=== PATIENT | male | born 1945 | race Caucasian/White ===

== ENCOUNTER 2018-07-28 15:06 | Observation (INO) | payer MEDICARE, SELFPAY ==
[2018-07-28 15:33] LABS: Absolute Lymphocytes (CBC) 1.6 K/uL (0.7-4.9); Absolute Monocytes 1.2 K/uL (0.1-1.3); Absolute Neutrophil 6.1 K/uL (1.8-8.0); Basophils % 0.8 % (0-1.3); Eosinophils % 1.1 % (0-4.4); Hematocrit 42.5 % (39.6-49.0); Lymphocytes % 18.1 % (15.3-44.8); MCH 28.1 pg (27.0-35.0); MCV 86.1 fL (80-100); MPV 8.2 fL (7.6-11.3); Monocytes % 13.4 % (3.3-12.3); RBC Red Blood Cell Count 4.94 M/uL (4.33-5.43)
[2018-07-28 15:37] LABS: Protime INR 1.1
[2018-07-28 15:44] LABS: Arterial Blood Carboxyhemoglob 0.5 % (0-1.5); Blood Gas Oxyhemoglobin 94.8 % (94-97)
[2018-07-28] MEDS ORDERED: ALBUTEROL 2.5 MG/3 ML NEB SOL ONE (15:46)
[2018-07-28] MEDS ORDERED: ASPIRIN 81 MG CHEWABLE TABLET ONE (15:46)
[2018-07-28] MEDS ORDERED: IPRATROPIUM BROM 0.5MG/2.5ML ONE (15:46)
[2018-07-28] MEDS ORDERED: NITROGLYCERIN 0.4 MG/TAB SL ONE (15:47)
[2018-07-28] MEDS ORDERED: KETOROLAC 30 MG/ML INJ ONE (15:47)
[2018-07-28 16:00] LABS: ALT/SGPT 18 U/L (12-78); AST/SGOT 7 U/L (15-37); Albumin 3.8 g/dL (3.4-5.0); Alkaline Phosphatase 90 U/L (45-117); BUN Blood Urea Nitrogen 36 mg/dL (7-18); Bicarbonate 21 mmol/L (21-32); Bilirubin Direct 0.1 mg/dL (0-0.2); Bilirubin Total 0.5 mg/dL (0.2-1.0); CKMB Creatine Kinase MB < 1.0 ng/mL (0.3-3.6); Creatine Phosphokinase 49 U/L (39-308); Glucose Level 155 mg/dL (74-106); Magnesium 1.9 mg/dL (1.8-2.4); NT PRO-BNP 376 pg/mL (<125); Potassium 4.8 mmol/L (3.5-5.1); Protein, Total 7.7 g/dL (6.4-8.2); Sodium Level 137 mmol/L (136-145); Troponin (Emerg Dept Use Only) < 0.02 ng/mL (0.0-0.045)
--- NOTE | 2018-07-28 16:51 | EDPHYS ---
Physician Documentation [facility] Name: Ford Lim Age: 72 yrs Sex: Male : 1945 Arrival Date: 07/28/2018 Time: 15:06 Bed 5 Private MD: Out, [facility] ED Physician Ольга Sharp HPI: 07/28 15:11 This 72 yrs old Male presents to ER via Unassigned with complaints of Chest cp Pain > 30 y/o. 15:11 The patient or guardian reports chest pain that is located primarily in the substernal cp area, anterior chest wall, bilaterally. 15:11 Onset: this morning, at 01:00. The pain does not radiate. Associated signs and cp symptoms: Pertinent positives: diaphoresis, shortness of breath, Pertinent negatives: abdominal pain, cough, dizziness, lower extremity pain, lower extremity swelling, syncope, vomiting. 15:11 The chest pain is described as a pressure. Duration: The patient or guardian reports cp multiple episodes, that wax and wane, worse when lying flat. 15:11 Severity of pain: in the emergency department the pain has improved. cp Historical: - Allergies: 17:12 No Known Allergies; hb - Home Meds: 15:14 Clonidine Oral [Active]; clonidine patch [Active]; valsartan oral oral [Active]; sv Metformin Oral [Active]; - PMHx: 15:14 Hypertension; Diabetes - NIDDM; sv - Immunization history:: Adult Immunizations up to date. - Social history:: Smoking status: Patient/guardian denies using tobacco. - Ebola Screening: : No symptoms or risks identified at this time. ROS: 15:15 Constitutional: Negative for body aches, chills, fever, poor PO intake. cp 15:15 Eyes: Negative for injury, pain, redness, and discharge. cp 15:15 ENT: Negative for drainage from ear(s), ear pain, sore throat, difficulty swallowing, difficulty handling secretions. 15:15 Cardiovascular: Positive for chest pain, Negative for edema, palpitations. 15:15 Respiratory: Positive for shortness of breath, Negative for cough, wheezing. 15:15 Abdomen/GI: Negative for abdominal pain, nausea, vomiting, and diarrhea, constipation, black/tarry stool, rectal bleeding. 15:15 Back: Negative for pain at rest, pain with movement, radiated pain. 15:15 : Negative for urinary symptoms, flank pain. 15:15 Skin: Negative for cellulitis, rash. 15:15 Neuro: Negative for altered mental status, headache, syncope, near syncope, weakness. 15:15 All other systems are negative. Exam: 15:17 ECG was reviewed by the Attending Physician. cp 15:20 Head/Face: Normocephalic, atraumatic. Eyes: Pupils equal round and reactive to light, cp extra-ocular motions intact. Lids and lashes normal. Conjunctiva and sclera are non-icteric and not injected. Cornea within normal limits. Periorbital areas with no swelling, redness, or edema. ENT: Nares patent. No nasal discharge, no septal abnormalities noted. Tympanic membranes are normal and external auditory canals are clear. Oropharynx with no redness, swelling, or masses, exudates, or evidence of obstruction, uvula midline. Mucous membranes moist. 15:20 Constitutional: The patient appears alert, awake, non-toxic, well developed, well nourished, in obvious distress, mildly distressed, uncomfortable. 15:20 Neck: Trachea: is midline with no obvious abnormalities, ROM/movement: is normal, is cp supple, without pain, no range of motions limitations, no meningismus, no nuchal rigidity. 15:20 Chest/axilla: Inspection: normal, Palpation: is normal, no crepitus, no tenderness. 15:20 Cardiovascular: Rate: tachycardic, Rhythm: regular, Pulses: Pulses are 2+ in right radial artery and left radial artery. Heart sounds: murmur, not appreciated, Edema: is not appreciated, JVD: is not appreciated. 15:20 Respiratory: mild respiratory distress is noted, Respirations: labored breathing, that is mild, intercostal retractions, are absent, shallow respirations, that is mild, Breath sounds: decreased breath sounds, that are mild, throughout, stridor, is not appreciated, wheezing: is not appreciated. 15:20 Abdomen/GI: Inspection: abdomen appears normal, Bowel sounds: active, all quadrants, Palpation: abdomen is soft and non-tender, in all quadrants, rebound tenderness, is not appreciated, voluntary guarding, is not appreciated, involuntary guarding, is not appreciated. 15:20 Back: pain, is absent, ROM is normal. 15:20 Skin: cellulitis, is not appreciated, no rash present. 15:20 Neuro: Orientation: to person, place \T\ time. Mentation: lucid, able to follow commands, Cerebellar function: is grossly normal, Motor: moves all fours, strength is normal, Sensation: no obvious gross deficits. Vital Signs: 15:14 BP 202 / 85; Pulse 108; Resp 24; Pulse Ox 90% on R/A; Weight 111.13 kg; Height 6 ft. 3 sv in. (190.50 cm); Pain 2/10; 17:00 BP 136 / 86; Pulse 88; Resp 17; Pulse Ox 100% on R/A; hb 18:00 BP 115 / 51; Pulse 76; Resp 17; Pulse Ox 98% on R/A; hb 19:28 BP 126 / 54; Pulse 72; Resp 20; Temp 98.4; Pulse Ox 100% on R/A; Pain 2/10; fc 20:05 BP 152 / 63; Pulse 72; Resp 20; Temp 98.2(O); Pulse Ox 100% on R/A; Pain 2/10; fc 15:14 Body Mass Index 30.62 (111.13 kg, 190.50 cm) sv 15:14 Pt placed on O2 \T\ 2L per NC. sv MDM: 15:10 Patient medically screened. de2 16:00 Differential diagnosis: acute myocardial infarction, acute pericarditis, anxiety, chest cp wall pain, congestive heart failure cholecystitis, Cholelithiasis costochondritis, esophagitis, pancreatitis, pulmonary embolus, stable angina, thoracic aortic disection, unstable angina. 16:15 Data reviewed: vital signs, nurses notes, lab test result(s), EKG, radiologic studies. 16:35 The patient was not given aspirin in the Emergency Department. Patient reports taking aspirin within the past 24 hours. Response to treatment: the patient's symptoms have markedly improved after treatment, and as a result, I will admit patient. 07/28 15:08 Order name: Basic Metabolic Panel; Complete Time: 16:01 [facility] 07/28 16:01 Interpretation: Normal except: CL 108; GLUC 155; BUN 36; CRE 2.10; GFR 31. cp 07/28 15:08 Order name: CBC with Diff; Complete Time: 15:44 [facility] 07/28 15:44 Interpretation: Normal except: RDW 16.0; MN% 13.4. 07/28 15:08 Order name: Ckmb; Complete Time: 16:01 [facility] 07/28 15:08 Order name: CPK; Complete Time: 16:01 [facility] 07/28 15:08 Order name: LFT's; Complete Time: 16:01 [facility] 07/28 16:01 Interpretation: Normal except: AST 7; GLOB 3.9; A/G 1.0. 07/28 15:08 Order name: Magnesium; Complete Time: 16:01 [facility] 07/28 15:08 Order name: NT PRO-BNP; Complete Time: 16:01 [facility] 07/28 15:08 Order name: PT-INR; Complete Time: 15:44 [facility] 07/28 15:08 Order name: Ptt, Activated; Complete Time: 15:44 [facility] 07/28 15:08 Order name: Troponin (emerg Dept Use Only); Complete Time: 16:01 [facility] 07/28 16:02 Interpretation: TROPED < 0.02; Reviewed. 07/28 15:08 Order name: XRAY Chest (1 view); Complete Time: 19:44 [facility] 07/28 15:32 Order name: ABG; Complete Time: 15:57 07/28 15:57 Interpretation: Normal except: ABGPCO2 32.8; ABGHCO3 18.1. 07/28 16:41 Order name: CT Chest Wo Con; Complete Time: 17:28 07/28 16:48 Order name: Urine Dipstick--Ancillary (enter results); Complete Time: 17:28 07/28 15:08 Order name: EKG; Complete Time: 15:09 [facility] 07/28 15:08 Order name: Cardiac monitoring; Complete Time: 17:05 [facility] 07/28 15:08 Order name: EKG - Nurse/Tech; Complete Time: 17:06 [facility] 07/28 15:08 Order name: IV Saline Lock; Complete Time: 17:06 [facility] 07/28 15:08 Order name: Labs collected and sent; Complete Time: 17:06 [facility] 07/28 15:08 Order name: O2 Per Protocol; Complete Time: 17:06 [facility] 07/28 15:08 Order name: O2 Sat Monitoring; Complete Time: 17:06 [facility] 07/28 15:08 Order name: Urine Dipstick-Ancillary (obtain specimen); Complete Time: 17:06 [facility] 07/28 18:25 Order name: Diet Regular; Complete Time: 18:25 ss EC:17 Rate is 99 beats/min. Rhythm is regular. WA interval is normal. QRS interval is normal. cp QT interval is normal. Interpreted by me. Reviewed by me. Administered Medications: 15:40 Drug: TORadol 30 mg Route: IVP; Site: right antecubital; sg 16:30 Follow up: Response: No adverse reaction; Pain is decreased hb 15:45 Not Given (Physician Discretion): Nitroglycerin 0.4 mg Sublingual once; every five cp minute if needed x3 15:53 Drug: Albuterol - atroVENT (3:1) (2.5 mg - 0.5 mg) 3 ml Route: Nebulizer; sg 16:30 Follow up: Response: No adverse reaction hb 15:54 Not Given (Patient Refused; pt reports taking 325 mg ENVIRONMENTAL SERVICES ASSISTANT): Aspirin Chewable Tablet 324 sg mg PO once; 81 mg tablets x 4 Disposition: 07/28/18 16:50 Hospitalization ordered by Azra Guerrero for Observation. Preliminary diagnosis is Chest pain, unspecified. - Bed requested for Telemetry/MedSurg (observation). - Status is Observation. fc - Condition is Stable. - Problem is new. - Symptoms have improved. UTI on Admission? No Addendum: 08/01/2018 18:22 Co-signature as Attending Physician, Ольга Sharp MD. m a2 Signatures: Dispatcher [employer] [facility] Sarah Carvajal RN RN Catie Kearns RN RN Tigre Newman RN RN sg Chretien, Felicia, RN RN fc Anand Worrell PA PA jr8 Page, Corey, PA PA cp Baxter, Heather, RN RN hb Alzahri, Mohammad, MD MD ma2 Corrections: (The following items were deleted from the chart) 07/28 18:32 16:48 Lovelace ordered. cp hb 19:34 16:50 Hospitalization Ordered by Azra Guerrero MD for Observation. Preliminary diagnosis is Chest pain, unspecified. Bed requested for Telemetry/MedSurg (observation). Status is Observation. Condition is Stable. Problem is new. Symptoms have improved. UTI on Admission? No. cp 20:34 19:34 07/28/2018 16:50 Hospitalization Ordered by Azra Guerrero MD for Observation. fc Preliminary diagnosis is Chest pain, unspecified. Bed requested for Telemetry/MedSurg (observation). Status is Observation. Condition is Stable. Problem is new. Symptoms have improved. UTI on Admission? No. dw
--- NOTE | 2018-07-28 16:51 | ER ---
Nurse's Notes [facility] Name: Ford Lim Age: 72 yrs Sex: Male : 1945 Arrival Date: 07/28/2018 Time: 15:06 Bed 5 Private MD: Out, [facility] Diagnosis: Chest pain, unspecified Presentation: 07/28 15:06 Presenting complaint: Patient states: intermittent sharp midsternal chest pain since sv 0100 with a headache. CXR done per PCP. Transition of care: patient was not received from another setting of care. Onset of symptoms was July 28, 2018 at 01:00. Care prior to arrival: None. 15:06 Method Of Arrival: Wheelchair sv 15:06 Acuity: KELLY 3 sv 15:15 Risk Assessment: Do you want to hurt yourself or someone else? Patient reports no hb desire to harm self or others. Initial Sepsis Screen: Does the patient meet any 2 criteria? No. Patient's initial sepsis screen is negative. Does the patient have a suspected source of infection? No. Patient's initial sepsis screen is negative. Historical: - Allergies: 17:12 No Known Allergies; hb - Home Meds: 15:14 Clonidine Oral [Active]; clonidine patch [Active]; valsartan oral oral [Active]; sv Metformin Oral [Active]; - PMHx: 15:14 Hypertension; Diabetes - NIDDM; sv - Immunization history:: Adult Immunizations up to date. - Social history:: Smoking status: Patient/guardian denies using tobacco. - Ebola Screening: : No symptoms or risks identified at this time. Screenin:15 Abuse screen: Denies threats or abuse. Denies injuries from another. Nutritional hb screening: No deficits noted. Tuberculosis screening: No symptoms or risk factors identified. Fall Risk None identified. Assessment: 15:15 General: Appears in no apparent distress. Behavior is calm, cooperative. Pain: hb Complains of pain in chest Pain does not radiate. Pain currently is 2 out of 10 on a pain scale. Quality of pain is described as pressure, Pain began suddenly, 1 hour ago. Neuro: Level of Consciousness is awake, alert, obeys commands, Oriented to person, place, time, situation. Cardiovascular: Heart tones S1 S2 present Capillary refill < 3 seconds Patient's skin is warm and dry. Respiratory: Airway is patent Trachea midline Respiratory effort is even, unlabored, Respiratory pattern is regular, symmetrical, Breath sounds are clear bilaterally. GI: No signs and/or symptoms were reported involving the gastrointestinal system. : No signs and/or symptoms were reported regarding the genitourinary system. EENT: No signs and/or symptoms were reported regarding the EENT system. Derm: No signs and/or symptoms reported regarding the dermatologic system. Skin is intact, is healthy with good turgor. Musculoskeletal: No signs and/or symptoms reported regarding the musculoskeletal system. 16:15 Reassessment: Patient appears in no apparent distress at this time. No changes from hb previously documented assessment. Patient and/or family updated on plan of care and expected duration. Pain level reassessed. Patient is alert, oriented x 3, equal unlabored respirations, skin warm/dry/pink. 17:00 Reassessment: Patient appears in no apparent distress at this time. No changes from hb previously documented assessment. Patient and/or family updated on plan of care and expected duration. Pain level reassessed. Patient is alert, oriented x 3, equal unlabored respirations, skin warm/dry/pink. 18:00 Reassessment: Patient appears in no apparent distress at this time. No changes from hb previously documented assessment. Patient and/or family updated on plan of care and expected duration. Pain level reassessed. Patient is alert, oriented x 3, equal unlabored respirations, skin warm/dry/pink. 19:29 General: Appears in no apparent distress. comfortable, well groomed, Behavior is calm, fc cooperative, appropriate for age. Pain: Complains of pain in chest Pain currently is 2 out of 10 on a pain scale. Quality of pain is described as aching, Pain began gradually, Is intermittent. Neuro: Level of Consciousness is awake, alert, obeys commands, Oriented to person, place, time, situation, Retail Coverage Merchandiser Lead are equal bilaterally Moves all extremities. Full function Speech is normal. Cardiovascular: Heart tones S1 S2 Capillary refill < 3 seconds Rhythm is regular. Respiratory: Airway is patent Respiratory effort is even, unlabored, Respiratory pattern is regular, symmetrical, Breath sounds are clear bilaterally. GI: No deficits noted. : No deficits noted. EENT: No deficits noted. Derm: Skin is pink, warm \T\ dry. Musculoskeletal: Circulation, motion, and sensation intact. Capillary refill < 3 seconds. 20:04 Reassessment: No changes from previously documented assessment. Patient and/or family fc updated on plan of care and expected duration. Pain level reassessed. Patient is alert, oriented x 3, equal unlabored respirations, skin warm/dry/pink. Pt given a sandwich to eat and is pending admission to room [facility]. 20:30 Reassessment: Pt is aware that report has been called and that he will shortly be going fc upstairs to 4th floor. General: Appears in no apparent distress. comfortable, Behavior is calm, cooperative, appropriate for age. Pain: Complains of pain in chest Pain currently is 2 out of 10 on a pain scale. Quality of pain is described as aching, pressure, Is intermittent. Neuro: Level of Consciousness is awake, alert, obeys commands, Oriented to person, place, time, situation, Appropriate for age. Cardiovascular: Heart tones S1 S2 Capillary refill < 3 seconds Rhythm is sinus rhythm. Respiratory: Airway is patent Respiratory effort is even, unlabored, Respiratory pattern is regular, symmetrical. GI: No deficits noted. : No deficits noted. EENT: No deficits noted. Derm: Skin is pink, warm \T\ dry. Musculoskeletal: Circulation, motion, and sensation intact. Capillary refill < 3 seconds. Vital Signs: 15:14 BP 202 / 85; Pulse 108; Resp 24; Pulse Ox 90% on R/A; Weight 111.13 kg; Height 6 ft. 3 sv in. (190.50 cm); Pain 2/10; 17:00 BP 136 / 86; Pulse 88; Resp 17; Pulse Ox 100% on R/A; hb 18:00 BP 115 / 51; Pulse 76; Resp 17; Pulse Ox 98% on R/A; hb 19:28 BP 126 / 54; Pulse 72; Resp 20; Temp 98.4; Pulse Ox 100% on R/A; Pain 2/10; fc 20:05 BP 152 / 63; Pulse 72; Resp 20; Temp 98.2(O); Pulse Ox 100% on R/A; Pain 2/10; fc 15:14 Body Mass Index 30.62 (111.13 kg, 190.50 cm) sv 15:14 Pt placed on O2 \T\ 2L per NC. sv ED Course: 15:06 Patient arrived in ED. sb2 15:07 Out, of Town is Private Physician. sb2 15:07 Ольга Sharp MD is Attending Physician. ma2 15:10 [facility] cp 15:13 Triage completed. sv 15:15 Patient maintains SpO2 saturation greater than 95% on room air. hb 15:15 Patient has correct armband on for positive identification. Placed in gown. Bed in low hb position. Call light in reach. Side rails up X 1. logging supervisor on. Pulse ox on. NIBP on. 15:22 EKG done, by building services technician. reviewed by Hector RICH. sm3 15:32 Inserted saline lock: 20 gauge in right antecubital area, using aseptic technique. hb Blood collected. 15:42 X-ray completed. Portable x-ray completed in exam room. Patient tolerated procedure bb2 well. 15:43 XRAY Chest (1 view) In Process Unspecified. EDMS 16:49 Azra Guerrero MD is Hospitalizing Provider. cp 16:[address] via wheelchair. vm2 16:53 CT completed. Patient tolerated procedure well. Patient moved back from CT. vm2 16:54 CT Chest Wo Con In Process Unspecified. EDMS 17:13 Patient placed. hb 17:19 Olivia Clark RN is Primary Nurse. ss 18:05 EKG done, by building services technician. reviewed by Hector RICH. sm3 20:04 No provider procedures requiring assistance completed. Patient admitted, IV remains in fc place. 20:18 Primary Nurse role handed off by Olivia Clark RN rg2 Administered Medications: 15:40 Drug: TORadol 30 mg Route: IVP; Site: right antecubital; sg 16:30 Follow up: Response: No adverse reaction; Pain is decreased hb 15:45 Not Given (Physician Discretion): Nitroglycerin 0.4 mg Sublingual once; every five cp minute if needed x3 15:53 Drug: Albuterol - atroVENT (3:1) (2.5 mg - 0.5 mg) 3 ml Route: Nebulizer; sg 16:30 Follow up: Response: No adverse reaction hb 15:54 Not Given (Patient Refused; pt reports taking 325 mg LIMNOLOGY TEACHER): Aspirin Chewable Tablet 324 sg mg PO once; 81 mg tablets x 4 Outcome: 16:50 Decision to Hospitalize by Provider. cp 20:06 Condition: good fc 20:06 Discharge instructions given to patient, Instructed on the need for admit, Demonstrated understanding of instructions. 20:25 Admitted to Tele accompanied by tech, via wheelchair, room 427, with chart, Report fc called to Jose Luis Haines 20:34 Patient left the ED. fc Signatures: Dispatcher [employer] EDMS Jake Banks2 Sarah Carvajal RN RN sv Tigre Newman RN RN sg Caron Harrell RN RN Jeanie Mandel RN RN ss Hector Peck, LAYLA PA cp Olivia Clark, RN RN Idalia Hu2 Reanna Ingram2 Ольга Sharp MD MD ma2 Breana Damon sb2 Silvina Ca sm3
--- NOTE | 2018-07-28 17:10 | RAD REPORT ---
EXAM DESCRIPTION: CT - Thorax Wo Con CLINICAL HISTORY: Chest pain PAIN COMPARISON: No comparisons FINDINGS: Mild linear subsegmental atelectasis is present in both lung bases. No focal infiltrate is seen. No pleural thickening or pleural effusion. No pneumothorax. No axillary, mediastinal or hilar adenopathy. No concerning bony finding. No gross upper abdominal finding. All CT scans are performed using dose optimization technique as appropriate and may include automated exposure control or mA/KV adjustment according to patient size. IMPRESSION: No acute intrathoracic abnormality is seen.
[2018-07-28 17:22] LABS: Urine Blood TRACE (NEG); Urine Glucose 2+ (NEG); Urine Protein NEGATIVE (NEG)
--- NOTE | 2018-07-28 18:08 | RAD REPORT ---
EXAM DESCRIPTION: RAD - Chest Single View - 07/28/2018 3:43 pm CLINICAL HISTORY: Chest pain COMPARISON: None. TECHNIQUE: AP portable chest image was obtained 1523 hour . FINDINGS: Lung volumes are low. Interstitial markings are mildly prominent, probably baseline for th e patient. No peripheral mass or consolidation. No significant failure or volume overload. Calcified granuloma in the mid left lung field. Heart and vasculature are normal. No measurable pleural effusio n and no pneumothorax. No gross bony abnormality seen. No acute aortic findings suspected. IMPRESSION: No failure, focal infiltrate or mass. Prominent interstitial markings believed to be baseline pattern accentuated by portable technique and shallow inspiration.
--- NOTE | 2018-07-28 19:10 | EKG ---
Test Date: 2018-07-28 Test Time: 17:45:43 Well Logging Captain: OG MEASUREMENT RESULTS: Intervals: Rate: 85 DE: 164 QRSD: 94 QT: 360 QTc: 428 [place]: P: 65 DE: 164 QRS: 85 T: 61 INTERPRETIVE STATEMENTS: Normal sinus rhythm Acute pericarditis Abnormal ECG Compared to ECG 07/28/2018 15:11:11 Right-axis deviation no longer present ST (T wave) deviation no longer present Electronically Signed On 07-28-18 19:09:38 CDT by Isaac Mehta
--- NOTE | 2018-07-28 19:10 | EKG ---
Test Date: 2018-07-28 Test Time: 15:11:11 Forestry Adviser: JIM MEASUREMENT RESULTS: Intervals: Rate: 99 VA: 162 QRSD: 96 QT: 342 QTc: 438 [place]: P: 73 VA: 162 QRS: 92 T: 70 INTERPRETIVE STATEMENTS: Normal sinus rhythm Rightward axis ST elevation, consider early repolarization, pericarditis, or injury Abnormal ECG No previous ECG available for comparison Electronically Signed On 07-28-18 19:09:52 CDT by Isaac Mehta
[2018-07-28] MEDS: INSULIN -REGULAR HUMAN 50 UNIT/0.5 ML ML SQ SCH ×2 (20:53→21:00)
[2018-07-28] MEDS ORDERED: ONDANSETRON 4 MG/2 ML VIAL IV PRN (20:53)
[2018-07-28] MEDS ORDERED: ACETAMINOPHEN 500 MG TAB PO PRN (20:53)
[2018-07-28 22:02] VITALS: BMI 30.9
[2018-07-28] MEDS: MORPHINE 4 MG/ML SYR IV PRN (22:44)
[2018-07-29] MEDS ORDERED: HYDROMORPHONE HCL 1 MG/ML INJ IV ONE (02:23)
[2018-07-29] MEDS ORDERED: TEMAZEPAM 15 MG CAP PO PRN (02:23)
[2018-07-29 04:22] LABS: Absolute Monocytes 1.4 K/uL (0.1-1.3)
[2018-07-29 04:29] LABS: Absolute Lymphocytes (CBC) 1.3 K/uL (0.7-4.9); Absolute Neutrophil 6.3 K/uL (1.8-8.0); Basophils % 0.7 % (0-1.3); Eosinophils % 0.6 % (0-4.4); Hematocrit 35.9 % (39.6-49.0); Lymphocytes % 14.5 % (15.3-44.8); MCH 28.5 pg (27.0-35.0); MCV 86.1 fL (80-100); MPV 8.7 fL (7.6-11.3); Monocytes % 15.6 % (3.3-12.3); RBC Red Blood Cell Count 4.17 M/uL (4.33-5.43)
[2018-07-29 04:40] LABS: ALT/SGPT 14 U/L (12-78); AST/SGOT 6 U/L (15-37); Albumin 3.1 g/dL (3.4-5.0); Alkaline Phosphatase 66 U/L (45-117); BUN Blood Urea Nitrogen 42 mg/dL (7-18); Bicarbonate 21 mmol/L (21-32); Bilirubin Total 0.5 mg/dL (0.2-1.0); Glucose Level 132 mg/dL (74-106); Potassium 5.2 mmol/L (3.5-5.1); Protein, Total 6.4 g/dL (6.4-8.2); Sodium Level 138 mmol/L (136-145); Troponin I < 0.02 ng/mL (0.0-0.045)
--- NOTE | 2018-07-29 04:44 | P.HP ---
Certification for Inpatient Patient admitted to: Observation With expected LOS: <2 Midnights Patient will require the following post-hospital care: None Practitioner: I am a practitioner with admitting privileges, knowledge of patient current condition, hospital course, and medical plan of care. Services: Services provided to patient in accordance with Admission requirements found in Title 42 Section 412.3 of the Code of Federal Regulations Patient History Date of Service: 07/28/18 Reason for admission: Chest pain rule out acute coronary syndrome History of Present Illness: Patient is a 72-year-old gentleman who came into the hospital with chest discomfort. Patient has some shortness of breath and diaphoresis along with the chest discomfort. Patient has a history of hypertension and diabetes but denies any history of Coronary artery disease. Patient had initial workup in the emergency room which did not reveal any significant abnormality. Patient is clinically feeling somewhat better. However the chest pain does wax and wane. Patient has not had any significant cardiac workup in quite a while. As long as serial troponins and EKG did not reveal any acute abnormality then plan will be to go ahead and initiate cardiac workup while in the hospital. Clinically patient appears to be stable. Patient's father were was a family practice physician in the [facility] for a long time. Allergies No Known Allergies Allergy (Unverified 07/28/18 19:32) Home Medications: Canagliflozin [Invokana] 100 mg PO DAILY 07/28/18 Clonidine [Catapres-Tts 2] 1 each TD Q7D 07/28/18 Gemfibrozil 600 mg PO BID 07/28/18 Metformin HCl 0 mg PO BID 07/28/18 Pioglitazone HCl 45 mg PO DAILY 07/28/18 Tamsulosin HCl 0.4 mg PO BEDTIME 07/28/18 Thyroid Tab [Crockett Thyroid*] 270 mg PO DAILY 07/28/18 Valsartan 320 mg PO DAILY 07/28/18 cloNIDine HCl [Clonidine HCl] 0.1 mg PO PRN PRN 07/28/18 - Past Medical/Surgical History Has patient received pneumonia vaccine in the past: Yes Diabetic: Yes -: hypertension -: NIDDM -: high cholesterol -: BPH -: cyst from back removed -: hernia repair -: left heel spur - Family History Father Family History: Reviewed- Non-Contributory - Social History Smoking Status: Never smoker Alcohol use: Yes CD- Drugs: No Caffeine use: Yes Place of Residence: Home Review of Systems 10-point ROS is otherwise unremarkable Physical Examination - Vital Signs Temperature: 98.2 F Blood Pressure: 152/63 Pulse: 72 Respirations: 20 Pulse Ox (%): 98 - Physical Exam General: Alert, In no apparent distress, Oriented x3 HEENT: Atraumatic, PERRLA, Mucous membr. moist/pink, EOMI, Sclerae nonicteric Neck: Supple, 2+ carotid pulse no bruit, No LAD, Without JVD or thyroid abnormality Respiratory: Clear to auscultation bilaterally, Normal air movement Cardiovascular: Regular rate/rhythm, Normal S1 S2, No murmurs Gastrointestinal: Normal bowel sounds, Soft and benign, Non-distended, No tenderness Musculoskeletal: No clubbing, No swelling, No tenderness Integumentary: No rashes Neurological: Normal gait, Normal speech, Normal strength at 5/5 x4 extr, Normal tone, Sensation intact, Cranial nerves 3-12 intact, Normal affect Lymphatics: No axilla or inguinal lymphadenopathy - Studies Laboratory Data (last 24 hrs) 07/28/18 15:20: PT 13.0 H, INR 1.10, APTT 41.2 H 07/28/18 15:20: WBC 9.1, Hgb 13.9, Hct 42.5, Plt Count 348 07/28/18 15:20: Sodium 137, Potassium 4.8, BUN 36 H, Creatinine 2.10 H, Glucose 155 H, Magnesium 1.9, Total Bilirubin 0.5, AST 7 L, ALT 18, Alkaline Phosphatase 90 Assessment & Plan - Plan Assessment: 1. Chest pain rule out acute coronary syndrome 2. History of hypertension 3. History of diabetes 4. History of dyslipidemia 5. Recent flu shot Plan: 1. Serial troponins and EKG 2. Cardiology consultation 3. Echocardiogram and stress test thia am 4. Anti-platelet therapy, anti coagulation, beta-ashlie, statin, and O2 as needed 5. IV morphine for pain 6. Nitro p.r.n. 7. Outpatient follow up if workup is negative Discharge Plan: Home Plan to discharge in: 48 Hours - Advance Directives Does patient have a Living Will: Yes Does patient have a Durable POA for Healthcare: Yes - Code Status/Comfort Care Code Status Assessed: Yes Code Status: Full Code Critical Care: No Time Spent Managing PTS Care (In Minutes): 50
[2018-07-29 05:11] LABS: Blood Morphology Comment NOT SEEN (NOT SEEN); Platelet Estimate ADEQ
[2018-07-29 05:14] LABS: Phosphorus 4.3 mg/dL (2.5-4.9)
[2018-07-29] MEDS: INSULIN -REGULAR HUMAN 50 UNIT/0.5 ML ML SQ SCH ×4 (07:30→20:47)
[2018-07-29] MEDS ORDERED: REGADENOSON 0.4 MG/5 ML SYR IV ONE (07:54)
[2018-07-29] MEDS: MORPHINE 4 MG/ML SYR IV PRN (10:22)
[2018-07-29] MEDS: COLCHICINE 0.6 MG TAB PO PRN ×2 (10:23→20:21)
--- NOTE | 2018-07-29 11:54 | ECHO ---
HEIGHT: 6 ft 3 in WEIGHT: 247 lb 14.4 oz DATE OF STUDY: 07/29/[address]: Ольга Patel MD 2-DIMENSIONAL: YES M.MODE: YES DOPPLER: YES COLOR FLOW: YES TDS: YES PORTABLE: NO DEFINITY: NO BUBBLE STUDY: NO DIAGNOSIS: CHEST PAIN/ RULE OUT ACUTE CORONARY SYNDROME CARDIAC HISTORY: CATHERIZATION: NO SURGERY: NO PROSTHETIC VALVE: NO PACEMAKER: NO MEASUREMENTS (cm) DIASTOLIC (NORMALS) SYSTOLIC (NORMALS) IVSd 1.0 (0.6-1.2) LA Diam 3.3 (1.9-4.0) LVEF 66% LVIDd 3.9 (3.5-5.7) LVIDs 2.5 (2.0-3.5) %FS 36% LVPWd 1.2 (0.6-1.2) Ao Diam 3.2 (2.0-3.7) 2 DIMENSIONAL ASSESSMENT: RIGHT ATRIUM: NORMAL LEFT ATRIUM: NORMAL RIGHT VENTRICLE: NORMAL LEFT VENTRICLE: NORMAL TRICUSPID VALVE: NORMAL MITRAL VALVE: NORMAL PULMONIC VALVE: NORMAL AORTIC VALVE: SCLEROSIS PERICARDIAL EFFUSION: NONE AORTIC ROOT: NORMAL LEFT VENTRICULAR WALL MOTION: NORMAL. DOPPLER/COLOR FLOW: MILD TRICUSPID REGURGITATION. COMMENTS: MILD TRICUSPID REGURGITATION NORMAL RIGHT VENTRICULAR SYSTOLIC PRESSURE. MILD AORTIC SCLEROSIS NO STENOSIS. NORMAL LEFT VENTRICULAR SIZE AND FUNCTION. NO EFFUSION. TECHNOLOGIST: ROSS VALDEZ
--- NOTE | 2018-07-29 12:21 | RAD REPORT ---
EXAM DESCRIPTION: NM - Rest Stress Cardiac Imaging - 07/29/2018 12:11 pm CLINICAL HISTORY: CP Chest pain. COMPARISON: No comparisons TECHNIQUE: The patient was administered approximately 10mCi of Tc 99m Sestamibi prior to resting SPE CT imaging of the heart. The patient was then administered approximately 30 mCi of Tc 99m Sestamibi f ollowing exercise or pharmacologic stress. Multiplanar SPECT images were reviewed. FINDINGS: No stress induced ischemic defect is seen to suggest stress induced ischemia. No fixed def ect is seen to suggest hibernating myocardium or scarred myocardium. The end diastolic volume is 124 ml, the end systolic volume is 50 ml, and the ejection fraction is 60 %. IMPRESSION: No stress induced ischemia.
--- NOTE | 2018-07-29 14:13 | P.PN ---
Subjective Date of Service: 07/29/18 Chief Complaint: Chest pain rule out acute coronary syndrome Patient seen and examined at bedside with RN. Chart reviewed. This morning patient complains of having some chest pain. Unable to lay flat still. Was seen by cardiology this morning. Has been scheduled for stress test this morning as well. Also complains of having some shortness of breath along with his chest pain Review of Systems 10-point ROS is otherwise unremarkable Physical Examination - Vital Signs Temperature: 98.0 F Blood Pressure: 160/60 Pulse: 98 Respirations: 18 Pulse Ox (%): 95 - Physical Exam General: Alert, In no apparent distress HEENT: Atraumatic, PERRLA, EOMI Neck: Supple, JVD not distended Respiratory: Clear to auscultation bilaterally, Normal air movement Cardiovascular: Regular rate/rhythm, Normal S1 S2 Gastrointestinal: Normal bowel sounds, No tenderness Musculoskeletal: No tenderness Integumentary: No rashes Neurological: Normal speech, Normal tone, Normal affect Lymphatics: No axilla or inguinal lymphadenopathy - Studies Laboratory Data (last 24 hrs) 07/28/18 15:20: PT 13.0 H, INR 1.10, APTT 41.2 H 07/28/18 15:20: WBC 9.1, Hgb 13.9, Hct 42.5, Plt Count 348 07/28/18 15:20: Sodium 137, Potassium 4.8, BUN 36 H, Creatinine 2.10 H, Glucose 155 H, Magnesium 1.9, Total Bilirubin 0.5, AST 7 L, ALT 18, Alkaline Phosphatase 90 Medications List Reviewed: Yes Assessment And Plan - Current Problems (Diagnosis) (1) Chest pain Onset Date: 07/29/18 Current Visit: Yes Status: Acute Plan: During the chest pain. Most likely secondary to pericarditis. -the cardiology consulted appreciated at this time -echocardiogram and stress ordered -colchicine 0.6 mg b.i.d. for now -will follow up with results and patient's pain (2) HTN (hypertension) Current Visit: Yes Status: Chronic (3) Diabetes Current Visit: Yes Status: Chronic - Plan Currently awaiting clinical improvement. Will follow up with echocardiogram and stress test today. Anticipate discharge in 24-48 hr once feeling better Discharge Plan: Home Plan to discharge in: 48 Hours - Code Status/Comfort Care Code Status Assessed: Yes Critical Care: No
--- NOTE | 2018-07-29 14:39 | CON ---
Date of Consultation: 07/29/[address] Guerrero's service on 07/28/2018 for chest pain. I saw the patient on 07/29/2018. History Of Present Illness: Mr. Lim is a 72-year-old white male, has no previous cardiac history, but has multiple risk factors including diabetes, hypertension, high triglyceride, benign prostatic hypertrophy, and hypothyroidism. Apparently recently received a flu shot Dr. Prieto' office. Dr. Barry giraldo and he discussed his case. Apparently, there is a remote chance that the flu shot gets pericardit is. The patient came to the emergency room with chest pain that is much worse when he lays down. EK G showed possible pericarditis and he was admitted. He denied PND, orthopnea, pedal edema, palpitati on, or syncope. Denied any fever or chills. Allergies: NONE. Review of Systems: Negative. Social History: Negative. Family History: Noncontributory. Medications: At home include Invokana, Catapres, Lopid, metformin, Flomax, and thyroid. Physical Examination: Vital Signs: Stable. He was in sinus rhythm, afebrile. HEENT: Negative. Neck: Supple with no bruit. Chest: Clear. Cardiac: Revealed a regular rhythm and rate. I did not hear a rub. No murmurs, no gallops. Abdomen: Benign. Extremities: Revealed no clubbing, cyanosis, or edema. Diagnostic Data: His creatinine was 2.10. Hemoglobin is 11.9. His BNP was 376. Troponin was negat rio. His blood glucose level was 180. Impression And Plan: 1.Chest pain, certainly could be related to pericarditis or even gastroesophageal disease. His hist ory with recent flu shot and his pain much worse when he lays down and pleuritic-type chest pain are consistent with pericarditis. Echocardiogram is pending. Lexiscan also was ordered by Dr. Guerrero and this is pending. If he has pericarditis, we could certainly treat him with nonsteroidal anti-inflam matory agent, steroids or even colchicine, but I will leave that up to Dr. Guerrero. Either choice is g ood as far as I am concerned. I would like colchicine, it seems to work better. His other issues in clude hypertension, diabetes, and hypertriglyceridemia. The hypertriglyceridemia seems to be well co ntrolled. I am concerned about his renal insufficiency. I am not so sure if is acute or chronic, an d I will leave that up to Dr. Guerrero and Dr. Prieto to deal with. He has taken valsartan and that may need to be held if his creatinine truly 2.10 and is worsening. WINNIE/IVANNA Voice ID: [id number] Report ID: [id number]
--- NOTE | 2018-07-29 15:51 | TREADPHA ---
DX: CHEST PAIN Date of Study: 07/29/2018 Ht: 6 3 Wt: 247 lb 14.4 oz Consulting Physician: MARCOS MEDICATIONS: TYLENOL, NOVOLIN-R, ZOFRAN, RESTORIL HISTORY: 72 YEAR OLD MALE WITH COMPLAINTS OF CHEST PAIN. MEDICAL HISTORY OF HYPERTENSION, DIABETES MELLITUS AND A FORMER SMOKER. PHYSICIAL EXAMINATION: RESTING B.P.: 146/65 RESTING H.R.: 83 RESTING EKG: NORMAL, POSSIBLE PERCARDITIS. PROTOCOL: LEXISCAN EXERCISE TIME: 3:30 B.P. AT PEAK STRESS: 140/56 IMPRESSION: LEXISCAN INJECTED. CARDIOLITE INJECTED PER PROTOCOL. SEE NUCLEAR MEDICINE REPORT. NO SUPRAVENTRICULAR OR VENTRICULAR TACHYCARDIA. NO PREMATURE VENTRICULAR COMPLEXES. CHEST PAIN 1/10 THROUGHOUT STRESS.
[2018-07-29] MEDS ORDERED: TAMSULOSIN 0.4 MG SR CAP PO SCH (21:00)
[2018-07-30] MEDS ORDERED: THYROID 30 MG TAB PO SCH (06:00)
[2018-07-30] MEDS: INSULIN -REGULAR HUMAN 50 UNIT/0.5 ML ML SQ SCH ×2 (07:30→11:30)
[2018-07-30] MEDS ORDERED: THYROID 90 MG PO SCH (09:00)
[2018-07-30 09:56] LABS: Absolute Lymphocytes (CBC) 1.7 K/uL (0.7-4.9); Absolute Monocytes 1.1 K/uL (0.1-1.3); Absolute Neutrophil 3.3 K/uL (1.8-8.0); Basophils % 0.7 % (0-1.3); Eosinophils % 2.6 % (0-4.4); Hematocrit 35.3 % (39.6-49.0); Lymphocytes % 26.9 % (15.3-44.8); MCH 28.7 pg (27.0-35.0); MCV 85.1 fL (80-100); MPV 8.9 fL (7.6-11.3); Monocytes % 17.2 % (3.3-12.3); RBC Red Blood Cell Count 4.14 M/uL (4.33-5.43)
[2018-07-30] MEDS: COLCHICINE 0.6 MG TAB PO PRN (10:00)
[2018-07-30 10:28] LABS: Anisocytosis 1+; Blood Morphology Comment NOTED (NOT SEEN); Platelet Estimate ADEQ; Polychromasia 1+
[2018-07-30 10:32] VITALS: BP 119/61; TEMP 97.1
[2018-07-30 10:48] VITALS: O2SAT 99
[2018-07-30 11:18] LABS: Bilirubin Total 0.5 mg/dL (0.2-1.0); Magnesium 2.3 mg/dL (1.8-2.4); Phosphorus 3.3 mg/dL (2.5-4.9); Potassium 4.5 mmol/L (3.5-5.1); Protein, Total 6.6 g/dL (6.4-8.2)
--- NOTE | 2018-07-30 14:26 | P.DS ---
Admission Date: 07/28/18 Discharge Date: 07/30/18 Disposition: ROUTINE DISCHARGE Discharge Condition: GOOD Reason for Admission: Chest pain rule out acute coronary syndrome Consultations: Cardiology - Problems (1) Chest pain Onset Date: 07/29/18 Status: Acute (2) HTN (hypertension) Status: Chronic (3) Diabetes Status: Chronic Brief History of Present Illness: Patient is a 72-year-old gentleman who came into the hospital with chest discomfort. Patient has some shortness of breath and diaphoresis along with the chest discomfort. Patient has a history of hypertension and diabetes but denies any history of Coronary artery disease. Patient had initial workup in the emergency room which did not reveal any significant abnormality. Patient is clinically feeling somewhat better. However the chest pain does wax and wane. Patient has not had any significant cardiac workup in quite a while. As long as serial troponins and EKG did not reveal any acute abnormality then plan will be to go ahead and initiate cardiac workup while in the hospital. Clinically patient appears to be stable. Patient's father were was a family practice physician in the [facility] area for a long time. Hospital Course: Overall during the hospital stay patient remained stable Patient was initially admitted to the hospital for chest pain most likely secondary to pericarditis. Cardiology was consulted who agreed with the diagnosis and started patient on colchicine 0.6 mg b.i.d.. Patient also had an echocardiogram done here in from stress test to rule out acute coronary syndrome. Although which were within normal limits and no abnormality were noted. Patient had resolution of his chest pain once we started him on colchicine and then was discharged home stable condition. Patient was asked to follow up with cardiology in about 1-2 days post discharge. Patient demonstrated understanding and thus was discharged home under stable condition. Of note patient also had renal insufficiency here in the hospital with creatinine of 2.10. Patient was asked to hold his blood pressure medication of valsartan and it is okay with his primary care doctor and Cardiology. Patient demonstrated understanding and thus was discharged home under condition Vital Signs/Physical Exam: Temp Pulse Resp BP Pulse Ox 97.1 F 70 17 119/61 95 07/30/18 12:00 07/30/18 12:00 07/30/18 12:00 07/30/18 12:00 07/30/18 12:00 General: Alert, In no apparent distress HEENT: Atraumatic, PERRLA, EOMI Neck: Supple, JVD not distended Respiratory: Clear to auscultation bilaterally, Normal air movement Cardiovascular: Regular rate/rhythm, Normal S1 S2 Gastrointestinal: Normal bowel sounds, No tenderness Musculoskeletal: No tenderness Integumentary: No rashes Neurological: Normal speech, Normal tone, Normal affect Lymphatics: No axilla or inguinal lymphadenopathy Laboratory Data at Discharge: WBC 6.2 K/uL (4.3-10.9) D 07/30/18 04:39 Hgb 11.9 g/dL (13.6-17.9) L 07/30/18 04:39 Hct 35.3 % (39.6-49.0) L 07/30/18 04:39 Plt Count 311 K/uL (152-406) 07/30/18 04:39 PT 13.0 SECONDS (9.5-12.5) H 07/28/18 15:20 INR 1.10 07/28/18 15:20 APTT 41.2 SECONDS (24.3-36.9) H 07/28/18 15:20 Sodium 137 mmol/L (136-145) 07/30/18 04:39 Potassium 4.5 mmol/L (3.5-5.1) 07/30/18 04:39 BUN 43 mg/dL (7-18) H 07/30/18 04:39 Creatinine 2.20 mg/dL (0.55-1.3) H 07/30/18 04:39 Glucose 134 mg/dL (74-106) H 07/30/18 04:39 Phosphorus 3.3 mg/dL (2.5-4.9) 07/30/18 04:39 Magnesium 2.3 mg/dL (1.8-2.4) 07/30/18 04:39 Total Bilirubin 0.5 mg/dL (0.2-1.0) 07/30/18 04:39 AST 5 U/L (15-37) L 07/30/18 04:39 ALT 13 U/L (12-78) 07/30/18 04:39 Alkaline Phosphatase 66 U/L (45-117) 07/30/18 04:39 Troponin I < 0.02 ng/mL (0.0-0.045) 07/29/18 12:20 Home Medications: Canagliflozin [Invokana] 100 mg PO DAILY 07/28/18 Clonidine [Catapres-Tts 2] 1 each TD Q7D 07/28/18 Gemfibrozil 600 mg PO BID 07/28/18 Metformin HCl 0 mg PO BID 07/28/18 Pioglitazone HCl 45 mg PO DAILY 07/28/18 Tamsulosin HCl 0.4 mg PO BEDTIME 07/28/18 Thyroid Tab [Dewitt Thyroid*] 270 mg PO DAILY 07/28/18 cloNIDine HCl [Clonidine HCl] 0.1 mg PO PRN PRN 07/28/18 Liraglutide [Victoza 2-Jose] 1.8 mg SQ DAILY 07/29/18 Olmesartan Medoxomil [Benicar] 40 mg PO BEDTIME 07/29/18 Colchicine [Colcrys *] 0.6 mg PO BID PRN #30 tab 07/30/18 New Medications: Colchicine [Colcrys *] 0.6 mg PO BID PRN #30 tab PRN Reason: Pain Patient Discharge Instructions: Please f.u with PCP and Dr mehta in 1 to 2 week post discharge. New medication. Colchicine 0.6mg BID. Hold. Valsartan and or Olmesartan for 2 weeks. You will need to get cbc, cmp done in 2 weeks post discharge. You will need to f.u with PCP regarding restarting your BP meds. Diet: ADA Activity: Fall precautions Followup: Isaac Mehta MD [ACTIVE - CAN ADMIT] - 1 Week (call to schedule appointment)
== END 2018-07-30 12:37 | disposition home or self-care (01) ==
LOC: ER 15:06 → ERHOLD 17:30 → 4TH 19:36
PROVIDERS: ADMIT Family Medicine; ATTEND Hospitalist
DX: R07.9 Chest pain, unspecified (principal); I10 Essential (primary) hypertension; E11.9 Type 2 diabetes mellitus without complications; N28.9 Disorder of kidney and ureter, unspecified; E78.5 Hyperlipidemia, unspecified
CPT/HCPCS: 36415 ×2; 71045; 71250; 78452; 80048; 80053 ×2; 80076; 81003; 82550; 82553; 82805; 82962 ×6; 83735 ×2; 83880; 84100 ×2; 84484 ×4; 85025 ×3; 85610; 85730; 93005 ×2; 93017; 93306; 94640; 96374; 99285; A9500; G0378 ×2; J1170; J2785